=== PATIENT | female | born 1995 | race Two or more races ===

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

== ENCOUNTER 2018-02-19 18:16 | Emergency (ER) | payer SELFPAY ==
[2018-02-19 18:51] LABS: URINE HCG POC HCG NEGATIVE (Negative)
[2018-02-19] MEDS: diphenhydrAMINE 50 MG/ML VIAL IVP (19:24)
[2018-02-19] MEDS: KETOROLAC 15 MG/ML VIAL. IV (19:26)
[2018-02-19] MEDS: PROCHLORPERAZINE 10 MG/2 ML VIAL. IV (19:28)
[2018-02-19] MEDS: IV NORMAL SALINE 1000ML BAG 1,000 ML IV (19:29)
[2018-02-19] MEDS: methylPREDNISolone SOD SUCC PF 125 MG/2 ML VIAL. IV (19:31)
[2018-02-20 07:10] LABS: NEGATIVE OBC STREP NEG; POSITIVE OBC STREP POS
== END 2018-02-19 20:20 | disposition home or self-care (01) ==
LOC: ER 20:20
DX: G43.909 Migraine, unspecified, not intractable, without status migrainosus (principal); J06.9 Acute upper respiratory infection, unspecified; Z88.7 Allergy status to serum and vaccine
CPT/HCPCS: 81025; 87070; 87880; 96374; 96375; 99284; J0780; J1200; J1885; J2930; J7030

== ENCOUNTER 2018-04-07 12:56 | Emergency (ER) | payer SELFPAY ==
[~2018-04-07] VITALS: Ht 152.4 cm; Wt 104.3 kg
[~2018-04-07 12:56] MED LIST changes: -BENZ200C39 PO; +BENZ200C47 PO; +PROAIR HFA8.5 GM INH
[2018-04-07] MEDS ORDERED: ALBUTEROL SULFATE 2.5 MG/3 ML NEBU. NEB ONE (14:15)
[2018-04-07 15:00] VITALS: BP 128/84
[2018-04-07] MEDS ORDERED: PROAIR HFA8.5 GM INH (15:14)
--- NOTE | 2018-04-07 15:14 | PHYS DOC ---
Past Medical History Past Medical History: No Pertinent History Additional Past Medical Histor: STREP HX Past Surgical History: No Surgical History Alcohol Use: None Drug Use: None Adult General Chief Complaint Chief Complaint: SHORTNESS OF BREATH HPI HPI Patient is a 22 year old female who presents to the emergency room today with complaints of shortness of breath since last night. Patient states that she had walking pneumonia a month ago, she took antibiotics and has been feeling better since then. She denies any cough, nasal congestion, fever, nausea, vomiting, diarrhea, ear pain, headache, abdominal pain, chest pain, or back pain. States that she had fumigated her apartment yesterday. Patient denies any history of asthma. Currently she denies any pain. Review of Systems Review of Systems Constitutional: Denies fever or chills [] Eyes: Denies change in visual acuity, redness, or eye pain [] HENT: Denies nasal congestion or sore throat reports mild runny nose since last night [] Respiratory: Denies cough; reports mild wheezing and shortness of breath Cardiovascular: Denies chest pain or palpitations GI: Denies abdominal pain, nausea, vomiting, or diarrhea [] Integument: Denies rash or skin lesions [] Neurologic: Denies headache, focal weakness or sensory changes [] Current Medications Current Medications Current Medications Medications (Trade) Dose Ordered Sig/Alexey Start Time Stop Time Status Last Admin Dose Admin Albuterol Sulfate (Ventolin Neb Soln) 2.5 mg 1X ONCE 04/07/18 14:15 04/07/18 14:16 DC 04/07/18 14:24 2.5 MG Allergies Allergies Allergies Coded Allergies Type Severity Reaction Last Updated Verified Influenza Virus Vaccines Allergy Intermediate Hives 11/07/15 Yes Physical Exam Physical Exam Constitutional: Well developed, well nourished, no acute distress, non-toxic appearance, obese [] HENT: Normocephalic, atraumatic, bilateral external ears normal, bilateral TMs normal, oropharynx moist, no oral exudates, nose normal. [] Eyes: PERRLA, conjunctiva normal, no discharge. [] Neck: Normal range of motion, no tenderness, supple, no stridor. [] Cardiovascular:Heart rate regular rhythm, no murmur [] Lungs & Thorax: Bilateral breath sounds clear to auscultation in upper lobes, a few scattered expiratory wheezes and posterior bilateral brooke [] Skin: Warm, dry, no erythema, no rash. [] Extremities: No tenderness, no cyanosis, no clubbing, ROM intact, no edema. [] Neurologic: Alert and oriented X 3, normal motor function, normal sensory function, no focal deficits noted. [] Psychologic: Affect normal, judgement normal, mood normal. [] Current Patient Data Vital Signs Vital Signs Date Time Temp Pulse Resp B/P (MAP) Pulse Ox O2 Delivery O2 Flow Rate FiO2 04/07/18 15:00 102 21 128/84 (99) 95 Room Air 04/07/18 14:20 98.6 98.6 EKG EKG [] Radiology/Procedures Radiology/Procedures [] Course & Med Decision Making Course & Med Decision Making Pertinent Labs and Imaging studies reviewed. (See chart for details) Patient is a 22-year-old female who presented to the emergency room with complaints of shortness of breath and wheezing with mild runny nose since last night. She states that she had fumigated her apartment yesterday. Her vital signs were stable in the emergency department. Patient was given a albuterol breathing treatment, she reported feeling much better after the breathing treatment, lungs were clear in all brooke following the breathing treatment. Patient was prescribed a Pro Air inhaler.Patient verbalized an understanding of home care, medications, follow-up, and return to ED instructions and was in agreement with the plan of care. [] Dragon Disclaimer Dragon Disclaimer This electronic medical record was generated, in whole or in part, using a voice recognition dictation system. Departure Departure Impression: Primary Impression: Acute bronchospasm Disposition: 01 HOME, SELF-CARE Condition: IMPROVED Referrals: NO PCP (PCP) Patient Instructions: Bronchospasm, [id number] Additional Instructions: Fill the prescription and use it as directed. Avoid exposure to airway irritants such as perfumes, smoke, dust, chemicals, candles. Follow-up with your primary care doctor in the next 1-2 days. Return to the emergency room if her symptoms worsen. Scripts Albuterol Sulfate (PROAIR HFA INHALER) 8.5 Gm Hfa.aer.ad 1-2 PUFF INH PRN Q4-6HRS PRN for SHORTNESS OF BREATH for 5 Days, #1 INHALER 0 Refills Prov: SARMAD RYDER [employer] 04/07/18 SARMAD RYDER [employer] Apr 07, 2018 15:14
== END 2018-04-07 15:29 | disposition home or self-care (01) ==
LOC: ER 12:56
DX: J98.01 Acute bronchospasm (principal); Z88.7 Allergy status to serum and vaccine
CPT/HCPCS: 94640; 99283; J7613

== ENCOUNTER 2020-04-30 19:50 | Emergency (ER) | payer SELFPAY ==
[~2020-04-30] VITALS: Ht 152.4 cm; Wt 109.0 kg
[~2020-04-30 19:50] MED LIST changes: +ALBU2.5V8 INH; -PROAIR HFA8.5 GM INH
[2020-04-30 20:11] VITALS: BP 149/80
[2020-04-30] MEDS ORDERED: CEPH-264 PO (20:17)
--- NOTE | 2020-04-30 20:17 | PHYS DOC ---
Past Medical History Past Medical History: No Pertinent History Additional Past Medical Histor: STREP HX Past Surgical History: No Surgical History Smoking Status: Never Smoker Alcohol Use: None Drug Use: None General Adult EDM: Chief Complaint: INSECT BITE HPI: HPI: Patient is a 24 year old female, accompanied by her significant other, who presents to the ER with complaints of insect bite to her left foot. Patient states that 2 days ago she noted a painful, swollen, red area to the top of her left foot. She states that the area has become very itchy. She denies any bleeding or drainage from the site, she denies any fever, decreased range of motion, body aches, or fatigue. She denies any pain at rest, she states that the pain only because of the area is touched. Review of Systems: Review of Systems: Constitutional: Denies fever or chills. [] Musculoskeletal: Denies back pain or joint pain. [] Integument: See HPI Neurologic: Denies focal weakness or sensory changes. [] Complete ROS is negative unless otherwise stated in the HPI. Heart Score: Risk Factors: Risk Factors: DM, Current or recent (<one month) smoker, HTN, HLP, family history of CAD, obesity. Risk Scores: Score 0 - 3: 2.5% MACE over next 6 weeks - Discharge Home Score 4 - 6: 20.3% MACE over next 6 weeks - Admit for Clinical Observation Score 7 - 10: 72.7% MACE over next 6 weeks - Early Invasive Strategies Allergies: Allergies: Allergies Coded Allergies Type Severity Reaction Last Updated Verified Influenza Virus Vaccines Allergy Intermediate Hives 11/07/15 Yes Physical Exam: PE: Constitutional: Well developed, well nourished, no acute distress, non-toxic appearance, obese. [] HENT: Normocephalic, atraumatic, bilateral external ears normal, nose normal. [] Eyes: PERRLA, EOMI, conjunctiva normal, no discharge. [] Neck: Normal range of motion, no stridor. [] Cardiovascular:Heart rate regular rhythm Lungs & Thorax: Respirations even and unlabored, no retractions, no respiratory distress Skin: Warm, dry; erythemic area to top of left foot with central punctum consistent with a localized reaction to insect bite noted, no streaking of erythema up the leg Extremities: No cyanosis, ROM intact, no edema. [] Neurologic: Alert and oriented X 3, no focal deficits noted. [] Psychologic: Affect normal, judgement normal, mood normal. [] Current Patient Data: Vital Signs: Vital Signs Date Time Temp Pulse Resp B/P (MAP) Pulse Ox O2 Delivery O2 Flow Rate FiO2 04/30/20 20:11 149/80 (103) 04/30/20 19:50 97.9 92 16 94 Room Air 97.9 EKG: EKG: [] Radiology/Procedures: Radiology/Procedures: [] Course & Med Decision Making: Course & Med Decision Making Pertinent Labs and Imaging studies reviewed. (See chart for details) [] Dragon Disclaimer: Yidio Disclaimer: This electronic medical record was generated, in whole or in part, using a voice recognition dictation system. Departure Departure Impression: Primary Impression: Insect bite of foot with local reaction Qualified Codes: S90.862A - Insect bite (nonvenomous), left foot, initial encounter; W57.XXXA - Bitten or stung by nonvenomous insect and other nonvenomous arthropods, initial encounter Disposition: 01 HOME, SELF-CARE Condition: STABLE Referrals: NO PCP (PCP) Patient Instructions: Insect Bite, [id number] Additional Instructions: Fill the prescription(s) and use as directed if symptoms worsen. You may apply [id number] topical hydrocortisone cream or Benadryl cream for relief of itching. Recommend application of cool packs to the affected area for comfort, you may also take Tylenol or ibuprofen as needed for pain. Follow-up with your primary care doctor if symptoms persist, return to the ER if symptoms worsen. Scripts Cephalexin (KEFLEX) 500 Mg Capsule 500 MG PO QID for 7 Days, #28 CAP 0 Refills Prov: SARMAD RYDER [employer] 04/30/20 Justicifation of Admission Dx: Justifications for Admission: Justification of Admission Dx: N/A SARMAD RYDER [employer] Apr 30, 2020 20:17
== END 2020-04-30 20:25 | disposition home or self-care (01) ==
LOC: ER 19:50
DX: S90.862A Insect bite (nonvenomous), left foot, initial encounter (principal); M79.672 Pain in left foot; L53.9 Erythematous condition, unspecified; Z88.7 Allergy status to serum and vaccine; W57.XXXA Bitten or stung by nonvenomous insect and other nonvenomous arthropods, initial encounter; Y93.89 Activity, other specified; Y92.89 Other specified places as the place of occurrence of the external cause; Y99.8 Other external cause status
CPT/HCPCS: 99283

== ENCOUNTER 2021-03-17 18:05 | Emergency (ER) | payer SELFPAY ==
[~2021-03-17 18:05] MED LIST changes: +CEPH-264 PO
== END 2021-03-17 18:51 | disposition left against medical advice (07) ==
LOC: ER 18:05
DX: R21 Rash and other nonspecific skin eruption (principal); L29.8 Other pruritus; Z53.21 Procedure and treatment not carried out due to patient leaving prior to being seen by health care provider